=== PATIENT | female | born 1990 | race African-American/Black ===

== ENCOUNTER → 2023-06-27 | Emergency (ER) | payer SELFPAY ==
[~2023-06-27] VITALS: Ht 167.6 cm; Wt 127.0 kg
[2023-06-27 10:42] VITALS: BP 143/76; TEMP 98.2; O2SAT 100
== END | disposition home or self-care (01) ==
LOC: ER 10:09
DX: T78.3XXA Angioneurotic edema, initial encounter (principal); Z98.890 Other specified postprocedural states; Z60.2 Problems related to living alone; Y92.89 Other specified places as the place of occurrence of the external cause